=== PATIENT | male | born 1995 | race Caucasian/White ===

== ENCOUNTER 2019-06-02 12:27 | Inpatient (IN) | payer OTHER, SELFPAY ==
[2019-06-02] VITALS (14 sets, daily range): BP systolic 98–137; BP diastolic 64–94; PULSE 72–106; RESP 13–23; TEMP 36.6–36.9; O2SAT 93–99; BMI 19.1
--- NOTE | ~2019-06-02 | XR_ITS ---
EXAMINATION: XR chest 1V portable EXAM DATE: 06/06/2019 15:01 INDICATION: Left-sided pneumothorax. TECHNIQUE: Portable AP frontal chest x-ray was obtained. Comparison is made to prior examination from 06/05/2019. FINDINGS: There is small apical lateral pneumothorax. The pleural reflection has been indicated on st udy for your review. Left-sided chest tube has slightly retracted but is still overlying left hemitho rax. No focal airspace disease. Lungs are hyperinflated with narrow cardiac silhouette. IMPRESSION: Small left pneumothorax unchanged. Reviewed, dictated and finalized at location A. A REPORTER
--- NOTE | ~2019-06-02 | XR_ITS ---
EXAMINATION: XR chest 1V portable DATE: 06/05/2019 07:40 INDICATION: Left pneumothorax. TECHNIQUE: A single frontal view of the chest was obtained on 2 radiographs. COMPARISON: Chest 2 views 06/04/2019 FINDINGS: There is a small left apical pneumothorax. There is a left-sided chest tube in expected pos ition. No pneumonia or pleural effusion. The heart size is normal. IMPRESSION: 1. Small left pneumothorax with interval improvement with chest tube in expected position. Reviewed, dictated and finalized at location B. TALLOGRAPHY TEACHER IMPRESSION: 1. Small left pneumothorax with interval improvement with chest tube in expecte d position.
--- NOTE | ~2019-06-02 | XR_ITS ---
EXAMINATION: XR chest 1V portable EXAM DATE: 06/07/2019 14:41 INDICATION: Pneumothorax. Left-sided chest tube placement. TECHNIQUE: Portable AP frontal chest x-ray was obtained. Comparison is made to prior examination from 06/07/2019. FINDINGS: The left-sided chest tube has been reinserted with tiny apical pneumothorax identified, nolvia rly completely reexpanded left lung. No focal airspace disease. Lungs are hyperinflated. There are no osseous abnormalities identified. There is subcutaneous gas. IMPRESSION: 1. Nearly complete reexpansion of the left lung following chest tube insertion. 2. Tiny apical pneumothorax. Reviewed, dictated and finalized at location A. SORTER OPERATOR IMPRESSION: 1. Nearly complete reexpansion of the left lung following chest tube insertion . 2. Tiny apical pneumothorax.
--- NOTE | ~2019-06-02 | XR_ITS ---
EXAMINATION: XR chest 1V portable DATE: 06/03/2019 05:43 INDICATION: Left pneumothorax. TECHNIQUE: A single frontal view of the chest was obtained on 2 radiographs. COMPARISON: Chest single view 06/02/2019 FINDINGS: The chest demonstrates clear lungs without pneumonia, pleural effusion, or pneumothorax. Th e heart size is normal. A left-sided chest tube is noted in expected position. IMPRESSION: 1. No pneumothorax. Left-sided chest tube in expected position. Reviewed, dictated and finalized at location A. UCT STEWARD
--- NOTE | ~2019-06-02 | XR_ITS ---
EXAMINATION: XR chest 2V DATE: 06/08/2019 10:55 INDICATION: Left pneumothorax. TECHNIQUE: Frontal and lateral views of the chest were obtained. COMPARISON: Chest single view 06/07/2019 FINDINGS: There is a moderate-sized left pneumothorax. There is a left-sided chest tube anteriorly wi th slight change in positioning. No pleural effusion or pneumonia. The heart size is normal. There is soft tissue gas in left chest wall and left neck. IMPRESSION: 1. Moderate-sized left pneumothorax with left chest tube in expected position. Reviewed, dictated and finalized at location A. REFINER
--- NOTE | ~2019-06-02 | XR_ITS ---
EXAMINATION: XR chest 1V portable EXAM DATE: 06/02/2019 14:18 INDICATION: Chest tube placement. Pneumothorax. TECHNIQUE: Frontal projections of the chest obtained and reviewed. Comparison is made to prior examin ation from 06/02/2019. FINDINGS: There is a left-sided chest tube, tip and side-port projecting over the left hemithorax. T here is small left-sided pneumothorax, pleural reflections have been indicated at the apex. Pneumotho rax has decreased significantly in size compared to this examination. Lungs appear significantly hype rinflated. Cardiomediastinal silhouette is normal. There are no pleural effusions. There are no osseo us abnormalities identified. IMPRESSION: 1. Left chest tube overlying expected position. 2. Small left pneumothorax. Reviewed, dictated and finalized at location A. NT SUPPORT ASSOCIATE
--- NOTE | ~2019-06-02 | XR_ITS ---
EXAMINATION: XR chest 1V portable DATE: 06/03/2019 09:09 INDICATION: Left pneumothorax. TECHNIQUE: A single frontal view of the chest was obtained. COMPARISON: Chest single view at 5:06 AM. FINDINGS: There is a moderate-sized left pneumothorax. There is a left-sided chest tube in expected p osition. No pleural effusion. The heart size is normal. IMPRESSION: 1. Worsened moderate-sized left pneumothorax with chest tube in expected position. Reviewed, dictated and finalized at location A. TILE MAKER IMPRESSION: 1. Worsened moderate-sized left pneumothorax with chest tube in expected positi on.
--- NOTE | ~2019-06-02 | XR_ITS ---
EXAMINATION: XR chest 2V DATE: 06/07/2019 08:37 INDICATION: Left pneumothorax. TECHNIQUE: Frontal and lateral views of the chest were obtained on 3 radiographs. COMPARISON: Chest single view 06/06/2019 FINDINGS: The chest demonstrates clear lungs without pneumonia, pleural effusion, or pneumothorax. Th e heart size is normal. There is a left-sided chest tube in expected position. IMPRESSION: 1. No pneumothorax. Left-sided chest tube in expected position. Reviewed, dictated and finalized at location A. N GRADER
--- NOTE | ~2019-06-02 | XR_ITS ---
XR chest 2V 06/04/2019 11:33 Indication: Left pneumothorax Procedure: 2 views of the chest Comparison: Comparison to multiple prior studies sequentially, with oldest reviewed study dated 05/05. Findings: Moderate left pneumothorax, slightly improved compared with most recent x-ray dated 020 at 9:06 AM. Left-sided chest tube in the mid thorax. No edema, effusion. Heart size normal. Impression: 1: Slightly decreased size of left pneumothorax from most recent study. Interval reposition of left c hest tube, now overlying the mid thorax. Reviewed, dictated and finalized at location A. CLE MECHANIC Impression: 1: Slightly decreased size of left pneumothorax from most recent study. Interva l reposition of left chest tube, now overlying the mid thorax.
--- NOTE | ~2019-06-02 | XR_ITS ---
EXAMINATION: XR chest 2V DATE: 06/02/2019 12:47 INDICATION: Chest pain. Shortness of breath. TECHNIQUE: Frontal and lateral views of the chest were obtained on 4 radiographs. COMPARISON: Chest 2 views 05/26/2014 FINDINGS: There is a large left pneumothorax. No pneumonia or pleural effusion. The heart size is nor mal. IMPRESSION: 1. Large left pneumothorax. I called this result to Dr. Lobato on 06/02/19 at 13:21. Reviewed, dictated and finalized at location A. Y TELEGRAPHER IMPRESSION: 1. Large left pneumothorax. I called this result to Dr. Lobato on 06/02/19 a t 13:21.
--- NOTE | ~2019-06-02 | XR_ITS ---
EXAMINATION: XR chest 1V portable DATE: 06/07/2019 13:02 INDICATION: Left pneumothorax. TECHNIQUE: A single frontal view of the chest was obtained on 2 radiographs. COMPARISON: Chest 2 views 06/07/2019 at 8:34 AM FINDINGS: There is a large left pneumothorax. No pleural effusion. The heart size is normal. There is gas in left neck and left chest wall. IMPRESSION: 1. Large left pneumothorax. Reviewed, dictated and finalized at location A. UNITY CULTURAL DEVELOPMENT OFFICER IMPRESSION: 1. Large left pneumothorax.
--- NOTE | 2019-06-02 12:31 | ECG_ITS ---
Measurements Intervals [place] Rate: 74 P: 75 NE: 160 QRS: 92 QRSD: 102 T: 63 QT: 342 QTc: 380 Interpretive Statements SINUS RHYTHM WITH SINUS ARRHYTHMIA POSSIBLE RIGHT ATRIAL ENLARGEMENT POSSIBLE LEFT ATRIAL ENLARGEMENT RIGHT AXIS DEVIATION INCOMPLETE RIGHT BUNDLE BRANCH BLOCK BASELINE ARTIFACT- I, II, AVR, AVL, AVF, V1-V6 BORDERLINE ECG Electronically Signed On 06-02-2019 13:58:02 WAITER/WAITRESS TAVERN by Stan Yen D.O.
[2019-06-02 12:50] LABS: Basophils Percent Auto 0.5 % (0.2-1.2); Eosinophils Absolute Auto 0.2 K/mm3 (0-0.3); Eosinophils Percent Auto 3.4 % (0-4.4); Hemoglobin 15.5 g/dL (14.0-18.0); Immature Granulocyte Absolute 0.02 K/mm3 (0.00-0.031); Immature Granulocyte Percent A 0.3 % (0-0.5); Lymphocytes Absolute Auto 2.02 K/mm3 (0.9-3.2); Lymphocytes Percent Auto 34.1 % (18.3-44.2); Mean Corpuscular Hemoglobin 30.5 pg (26-34); Mean Corpuscular Volume 92.5 fl (80-100); Mean Platelet Volume 9.1 fl (7.4-10.4); Monocytes Absolute Auto 0.5 K/mm3 (0.1-0.6); Monocytes Percent Auto 7.6 % (2.6-8.5); Neutrophils Absolute Auto 3.2 K/mm3 (1.3-6.7); Neutrophils Percent Auto 54.1 % (45.5-73.1); Platelet Count Result 250 k/mm3 (150-375); Red Blood Count 5.08 M/mm3 (4.6-6.20); Red Cell Distribution Width 12.5 % (11.5-14.5); White Blood Count 5.9 K/mm3 (4.5-10.0)
[2019-06-02 12:59] LABS: Prothrombin Time 13.3 Seconds (11.1-14.7)
--- NOTE | 2019-06-02 13:02 | ED.CHESTPAIN ---
HPI - Chest Pain General Chief Complaint: Chest Pain Stated Complaint: anxiety/cp Time Seen by Provider: 06/02/19 13:00 Source: patient Mode of arrival: EMS Limitations: no limitations History of Present Illness HPI narrative: Pt is a 24 y/o male who presents to the ED, via EMS, with c/o 7-8/10 lt-sided chest tightness that started this morning. He reports SOB. Pt has a h/o anxiety. He states that he has never had this pain before. Pt was given ASA en route. MD complaint: chest pain Timing of current episode: constant Prior episodes: No Onset: awoke with symptoms Pain location: left chest Quality: tightness Associated symptoms: dyspnea and other (anxiety) Treatment prior to arrival: aspirin Related Data Home Medications Medication Instructions Recorded Confirmed clonazepam 06/02/19 Allergies Allergy/AdvReac Type Severity Reaction Status Date / Time No Known Allergies Allergy Unverified 06/02/19 12:57 Review of Systems Review of Systems: All systems reviewed & are unremarkable except as noted in HPI and below Cardiovascular: Cardiovascular: Reports chest pain (lt sided) Respiratory: Respiratory: Reports dyspnea Psychiatric: Psychiatric: Reports anxiety PMFSH Past Medical History Medical History (Updated 06/02/19 @ 18:27 by Graham Lobato MD) Anxiety Asthma Bronchitis Depression Surgical History Surgical History (Updated 06/02/19 @ 13:20 by Greg May) No significant past surgical history Social History Social History (Updated 06/02/19 @ 13:20 by Greg May) Smoking status: Current every day smoker Gender identity (if verbalized by the patient): Male Exam Const: General: healthy appearing Nutritional Appearance: well nourished HENMT: Mouth: Yes lip normal and Yes moist mucous membranes Eyes: Conjunctivae: conjunctivae normal Pupils: PERRL Resp: Auscultation: breath sounds absent on th left Cardio: Rate: tachycardic Rhythm: regular rhythm GI: GI Palp: Yes soft and No tender Auscultation: normal bowel sounds Back/Spine/Pelvis: Back: other (full ROM) Skin: General skin exam: normal color, dry skin and other (warm) Neuro: General: oriented x3 (alert) Speech: normal speech Extrem: General: full ROM Psych: Mental Status: mental status grossly normal Affect: anxious affect Course Vital Signs Vital signs: Vital Signs Temperature 36.6 C 06/02/19 12:29 Pulse Rate 92 06/02/19 12:29 Respiratory Rate 18 06/02/19 12:29 Blood Pressure 102/73 06/02/19 12:29 Pulse Oximetry 99 06/02/19 12:29 Temperature 36.6 C 06/02/19 12:29 Pulse Rate 85 06/02/19 17:16 Respiratory Rate 21 H 06/02/19 17:16 Blood Pressure 119/76 06/02/19 17:16 Pulse Oximetry 98 06/02/19 15:10 Procedures Chest Tube Chest Tube 1: Chest Tube Date: 06/02/19 Chest Tube Time: 14:11 Chest Tube Location: left, mid axillary line and fifth interspace Tube Type: quik thal Size of Tube (cm): 16 Chest Tube Prep: Yes betadine prep (chlorhexadine) and sterile drapes applied Anesthetic: lidocaine 1% Incision Made With: #10 blade Post Procedure: sutured to skin, sterile dressing applied and connected to Pluero Vac Tube Drainage: none Post Procedure CXR?: Yes Post Procedure: post CXR reviewed, placement appropriate and pneumo resolved Patient Tolerated Procedure: Yes MDM - Chest Pain Lab Data Result diagrams: 06/02/19 12:37 06/02/19 12:37 Labs: Lab Results 06/02/19 06/02/19 06/02/19 Range/Units 12:37 12:37 12:37 WBC 5.9 (4.5-10.0) K/mm3 RBC 5.08 (4.6-6.20) M/mm3 Hgb 15.5 (14.0-18.0) g/dL Hct 47.0 (42.0-52.0) % MCV 92.5 (80-100) fl MCH 30.5 (26-34) pg MCHC 33.0 (32-36) g/dl RDW 12.5 (11.5-14.5) % Plt Count 250 (150-375) k/mm3 MPV 9.1 (7.4-10.4) fl Immature Gran % (Auto) 0.3 (0-0.5) % N
[2019-06-02 13:05] LABS: Blood Urea Nitrogen 10 mg/dL (9-20); Calcium 9.7 mg/dL (8.4-10.2); Carbon Dioxide 26 mmol/L (22-30); Chloride 101 mmol/L (98-107); Estimated Glomerular Filt Rate > 60; Glucose 100 mg/dL (75-110); Potassium 4.1 mmol/L (3.4-5.0); Sodium 137 mmol/L (137-145)
[2019-06-02] MEDS: LORAZEPAM INJ 2 MG/ML VIAL IV PUSH (13:12)
[2019-06-02 13:16] LABS: Troponin I < 0.012 ng/mL (0.000-0.034)
--- NOTE | 2019-06-02 15:21 | PC.NURSE ---
Pts mother in room, getting pt very upset. This RN asked her to leave and mother started yelling at this RN causing a scene, demanding to talk to the dr. I again told her she needed to leave because pt was getting very upset and attempted to pull out his chest tube to leave. Mother walked out of room and this RN able to calm pt and get him back in bed.
[2019-06-02] MEDS: KETOROLAC 30 MG/ML VIAL (*BKC) IV PUSH (18:29)
[2019-06-02] MEDS: MORPHINE SULFATE 2 MG/ML INJ IV PUSH (18:30)
--- NOTE | 2019-06-02 20:03 | ADMGEN ---
This patient, Favian Burris, was admitted to 2 Medical Room 257-. Patient/family oriented to hospital policies and general routines including ID bracelet, bed and alarms, visiting hours, pain management, procedures, bathroom and other care routines, personal items, smoking policy, room service/diet, and visiting hours. Valuables list has been completed. Information on how to activate the Rapid Response Team has been discussed. Patient/Family are encouraged to report perceived risks to care and to ask questions if they do not understand what they are told or what they should do.
[2019-06-02 20:39] LABS: Troponin I < 0.012 ng/mL (0.000-0.034)
--- NOTE | 2019-06-02 23:01 | PM.IMHP ---
H&P: HPI History of Present Illness Chief complaint: pneumothorax Narrative: Favian Burris is a 24 year old male With states that he simply woke up this morning short of breath. When I did get better E came to the emergency room for a workup. Chest x-ray showed a pneumothorax on the left. Chest tube was placed in the ER and the postop chest x-ray reveals almost complete resolution of the pneumothorax. Most likely the patient has appy Koul blebs on the left. Patient is a smoker and we did discuss possible cessation. Review of Systems Constitutional: Constitutional: Reports no additional constitutional complaints and Denies frequent falls Eyes: Eyes: Reports as per HPI ENT: Reports hearing normal, Denies dizziness and Reports other (Mucous membranes moist.) Cardiovascular: Cardiovascular: Denies chest pain, Denies palpitations, Denies dyspnea and Denies dyspnea on exertion Respiratory: Respiratory: Denies hemoptysis, Reports pain with cough, Denies dyspnea, Denies dyspnea on exertion and Denies wheezing Comments: Patient admits to smoking both cigarettes and marijuana. States he actually probably slid smokes little bit more marijuana than cigarettes. His brother was in the room states he thinks the patient actually smokes more cigarettes than the other. Patient has never had a previous pneumothorax. Gastrointestinal: Gastrointestinal: Reports no additional gastrointestinal complaints Genitourinary: Genitourinary: Denies hematuria, Denies nocturia and Denies urinary frequency Musculoskeletal: Musculoskeletal: Denies deformity and Reports other ( no clubbing,cyanosis, or edema) Integumentary/Breasts: Skin/Breast: Denies new lesions, Denies rash and Denies unusual bruising Neurologic: Reports Normal hearing present, Denies dizziness, Denies frequent falls, Denies memory loss and Denies seizure-like activity Psychiatric: Psychiatric: Reports depression ( History of anxiety /depression. Occasionally takes clonazepam typically ), Denies memory loss and Reports other ( normal mood and mental status) Comments: Typically takes his clonazepam 1 or 2 times a week not every day. Endocrine: Endocrine: Denies cold intolerance and Denies palpitations Hematologic/Lymphatic: Hematologic/Lymphatic: Denies easy bleeding and Denies easy bruising Allergic/Immunologic: Allergic/Immunologic: Denies wheezing and Reports other ( no lymphadenopathy) [facility] Past Medical History Medical History (Updated 06/02/19 @ 23:10 by Mj Dodd MD) Anxiety Asthma Bronchitis Depression Surgical History Surgical History (Updated 06/02/19 @ 13:20 by Greg May) No significant past surgical history Family History Family History (Updated 06/02/19 @ 20:27 by Nick Iglesias RN) Mother Panic attack Anxiety Mitral valve prolapse Social History Social History (Updated 06/02/19 @ 13:20 by Greg May) Smoking packs per day: 1.5 Smoking cigarettes per day: 30.0 Years smoked: 12 Smoking pack-years: 18.00 Smoking status: Current every day smoker Tobacco type: cigarettes Second hand tobacco smoke exposure: Yes Alcohol intake: current Drinks per week: 1 Substance use: current Substance use type: marijuana Last use: 06/02/2019 Gender identity (if verbalized by the patient): Male Spiritual care concerns: No Agree to blood products: Yes Meds Home Medications and Allergies Home Medications Medication Instructions Recorded Confirmed Type clonazepam 0.5 mg PO DAILY PRN 06/02/19 06/02/19 History Allergies Allergy/AdvReac Type Severity Reaction Status Date / Time No Known Allergies Allergy Unverified 06/02/19 12:57 Vital Signs Vital Signs - 24 hr 06/02/19 12:29 06/02/19 12:53 06/02/19 13:30 Temperature 36.6 C Pulse Rate 92 75 100 Respiratory Rate 18 23 H 20 Blood Pressure 102/73 124/91 H 115/64 Pulse Oximetry 99 97 98 06/02/19 14:01 06/02/19 14:26 06/02/19
[2019-06-02] MEDS: SODIUM CHLORIDE 0.9% IV 1,000 ML 50 ML IV CONT (23:26)
[2019-06-03] MEDS: CLONAZEPAM 0.5 MG TAB PO ×2 (00:52→12:46)
[2019-06-03] MEDS: MORPHINE SULFATE 2 MG/ML INJ IV PUSH (03:45)
[2019-06-03 06:00] VITALS: BP 121/78; PULSE 92; RESP 18; TEMP 36.7; O2SAT 96
--- NOTE | 2019-06-03 07:22 | PC.NURSE ---
Chest tube suction turned off per doctors order at 6 am
--- NOTE | 2019-06-03 09:40 | PC.NURSE ---
Chest tube hooked back up to suction per Dr. Dodd.
[2019-06-03 14:00] VITALS: BP 135/97; PULSE 88; RESP 19; TEMP 36.8; O2SAT 100
--- NOTE | 2019-06-03 19:01 | PM.PNGS ---
Progress Note: A&P Assessment and Plan (1) Pneumothorax: Onset Date: 06/02/19 Qualifiers: Pneumothorax type: spontaneous, primary Qualified Code(s): J93.11 - Primary spontaneous pneumothorax Code(s): J93.9 - Pneumothorax, unspecified Status: Acute Assessment and Plan: Chest x-ray done with chest tube office suction revealed collapse of the lung where as earlier chest x-ray today showed lung completely re-expanded well chest tube was to Pleur-Evac and suction. Plan will be to again place the chest tube to water seal only at 7:00 a.m. tomorrow morning repeat chest x-ray at 9:00 a.m.. Patient had a persistent air leak today so will be left to 20 cm water seal suction for another 24 hours. (2) Anxiety: Onset Date: Unknown Code(s): F41.9 - Anxiety disorder, unspecified Status: Acute Assessment and Plan: Patient has p.r.n. clonazepam ordered. Does not indicate significant anxiety. Subjective Subjective Date/Time Seen: 06/03/19 18:01 patient stating that he still has pain along the left chest with a chest tube is. Has not noticed specific shortness of breath. Actually did not notice severe shortness of breath when his lung partially collapsed while the chest tube was on off of suction this morning. Review of Systems Constitutional: Constitutional: Reports no additional constitutional complaints ENT: Reports other (Mucous Membranes moist.) Cardiovascular: Cardiovascular: Denies dyspnea Respiratory: Respiratory: Denies pain on inspiration and Denies dyspnea Musculoskeletal: Musculoskeletal: Reports other (No calf swelling or edema) Integumentary/Breasts: Skin/Breast: Reports system reviewed and no additional complaints, except as docu Exam Const: General: cooperative, no acute distress, alert and awake Orientation/consciousness: oriented x3 HENMT: Mouth: Yes moist mucous membranes Neck: Neck: normal visual inspection Chest: Chest palpation & inspection: normal inspection of the chest Resp: Effort & Inspection: normal respiratory effort Auscultation: clear to auscultation bilaterally Other: Left chest to in place Inspection of the Pleur-Evac canister reveals that with talking and coughing there is a pair present air leak. After several coughs and then using the incentive spirometer the air leak stopped. Cardio: Jugular venous distension: no JVD Rate: regular rate Rhythm: regular rhythm Neuro: General: oriented x3 and moves all extremities Speech: normal speech Extrem: General: normal exam except as noted Psych: Mental Status: mental status grossly normal Speech and movement: speech and movement normal Affect: normal affect Thought content: Yes normal Objective Data Vital Signs Vital Signs: Vital Signs - 24 hr 06/02/19 19:40 06/02/19 20:21 06/03/19 06:00 Temperature 36.9 C 36.7 C Pulse Rate 75 106 H 92 Respiratory Rate 16 16 18 Blood Pressure 118/72 114/76 121/78 Pulse Oximetry 99 97 96 06/03/19 14:00 Temperature 36.8 C Pulse Rate 88 Respiratory Rate 19 Blood Pressure 135/97 H Pulse Oximetry 100 Intake/Output Intake/Output: Intake & Output 05/31/19 06/01/19 06/02/19 06/03/19 23:59 23:59 23:59 23:59 Intake Total 1190 Output Total 1500 Balance -310 Meds/Results Medications: Active Medications Generic Name Dose Route Start Last Admin Trade Name Freq PRN Reason Stop Dose Admin Hydrocodone Bitart/Acetaminophen 1 tab 06/02/19 19:18 06/03/19 12:46 [place] 5-325 Mg PO 1 tab Q6H PRN Administration Pain Rated 4-6 Clonazepam 0.5 mg 06/02/19 22:57 06/03/19 12:46 Klonopin Tablet PO 0.5 mg Q12H PRN Administration Anxiety Sodium Chloride 1,000 mls @ 50 mls/hr 06/02/19 19:20 06/02/19 23:26 Normal Saline Iv IV CONT 50 mls/hr .Q20H KASSIE Administration Morphine Sulfate 2 mg 06/02/19 19:19 06/03/19 03:45 Morphine Sulfate Inj IV PUSH 2 mg Q4H PRN Adminis
[2019-06-03] MEDS: SODIUM CHLORIDE 0.9% IV 1,000 ML 50 ML IV CONT (20:09)
[2019-06-03 22:00] VITALS: BP 103/67; PULSE 72; RESP 16; TEMP 36.8; O2SAT 100
[2019-06-04] MEDS: CLONAZEPAM 0.5 MG TAB PO ×2 (00:28→15:05)
[2019-06-04 06:00] VITALS: BP 102/68; PULSE 56; RESP 16; TEMP 36.7; O2SAT 98
--- NOTE | 2019-06-04 07:00 | PC.NURSE ---
Suction held to chest tube. Pt is having no shortness of breath at this time.
--- NOTE | 2019-06-04 07:44 | PC.NURSE ---
Dr. Dodd hooked patient's chest tube back up to suction. He wants to cancel the CXR for now and reevaluate later today. He says the patient can be unhooked if he wants to take a walk in the halls and then return to suction once completed. 06/04/19 at 0740
--- NOTE | 2019-06-04 10:28 | PC.NURSE ---
Spoke with Dr. Dodd this morning about patients chest tube bubbling. Chelsey Perez RN and Dr. Dodd looked for any air leaks in the tubing and he put extra tape to reenforce it. Around 0910 this morning I went in to do my assessment and the patient was laying on his right side and the chest tube was bubbling frequently. I went out and Iris Franco was at the desk. She came to asses the patient. She stated the tube could be positional and she adjusted the suction on the wall to better help the chest tube set up. She also repositioned the patient. The bubbling is frequent when he lays on the right, moderate when he is sitting up and minimal when laying in bed. She rechecked for leaks in the tubing.
--- NOTE | 2019-06-04 11:27 | PM.PNGS ---
Progress Note: A&P Assessment and Plan (1) Pneumothorax: Onset Date: 06/02/19 Qualifiers: Pneumothorax type: spontaneous, primary Qualified Code(s): J93.11 - Primary spontaneous pneumothorax Code(s): J93.9 - Pneumothorax, unspecified Status: Acute Assessment and Plan: Persistent air leak noted today on exam. Tubing connections secure. Will get chest x-ray this morning while on wall suction. This will allow us to re-evaluate and confirm placement again today due to the air leak and also evaluate for a pneumothorax while on suction. (2) Anxiety: Onset Date: Unknown Code(s): F41.9 - Anxiety disorder, unspecified Status: Acute Assessment and Plan: Patient has p.r.n. clonazepam ordered. Does not indicate significant anxiety. Subjective Subjective Date/Time Seen: 06/04/19 10:20 Patient reports: no new complaints and still having pain Interval history: Patient seen and examined. Reports still having pain but all localized where the chest tube was inserted. No shortness of breath. Has refused to get up and walk today. No other complaints. Air leak noted yesterday. Review of Systems Review of Systems: All systems reviewed & are unremarkable except as noted in HPI and below Exam Const: General: no acute distress, alert and awake Orientation/consciousness: oriented x3 Chest: Chest palpation & inspection: normal inspection of the chest Resp: Effort & Inspection: normal respiratory effort, able to speak in complete sentences and no respiratory distress Auscultation: clear to auscultation bilaterally Other: Left lateral chest tube in place. Persistent air leak noted on wall suction. No crepitus. Tubings checked and secure. Cardio: Rate: regular rate Rhythm: regular rhythm Skin: General skin exam: normal color Neuro: General: moves all extremities Extrem: General: no edema Psych: Attitude: cooperative Thought process: normal thought process Objective Data Vital Signs Vital Signs: Vital Signs - 24 hr 06/03/19 14:00 06/03/19 22:00 06/04/19 06:00 Temperature 36.8 C 36.8 C 36.7 C Pulse Rate 88 72 56 L Respiratory Rate 19 16 16 Blood Pressure 135/97 H 103/67 102/68 Pulse Oximetry 100 100 98 Intake/Output Intake/Output: Intake & Output 06/01/19 06/02/19 06/03/19 06/04/19 23:59 23:59 23:59 23:59 Intake Total 2430 180 Output Total 1500 225 Balance 930 -45 Meds/Results Medications: Active Medications Generic Name Dose Route Start Last Admin Trade Name Freq PRN Reason Stop Dose Admin Hydrocodone Bitart/Acetaminophen 1 tab 06/02/19 19:18 06/04/19 09:27 [place] 5-325 Mg PO 1 tab Q6H PRN Administration Pain Rated 4-6 Clonazepam 0.5 mg 06/02/19 22:57 06/04/19 00:28 Klonopin Tablet PO 0.5 mg Q12H PRN Administration Anxiety Sodium Chloride 1,000 mls @ 50 mls/hr 06/02/19 19:20 06/03/19 20:09 Normal Saline Iv IV CONT 50 mls/hr .Q20H KASSIE Administration Morphine Sulfate 2 mg 06/02/19 19:19 06/03/19 03:45 Morphine Sulfate Inj IV PUSH 2 mg Q4H PRN Administration Pain Rated 4-6 Morphine Sulfate 4 mg 06/02/19 19:18 Morphine Sulfate Inj IV PUSH Q4H PRN Pain Rated 7-10 Nicotine 1 patch 06/02/19 23:00 06/04/19 09:29 Nicoderm Cq 21 Mg TRANSDERM 1 patch QAM KASSIE Administration Radiology Results: ITS Impressions Chest X-Ray 06/03/19 09:14 IMPRESSION: 1. Worsened moderate-sized left pneumothorax with chest tube in expected position.
[2019-06-04 14:00] VITALS: BP 112/65; PULSE 78; RESP 15; TEMP 37.1; O2SAT 99
[2019-06-04 21:38] VITALS: BP 134/84; PULSE 74; RESP 16; TEMP 36.4; O2SAT 99
[2019-06-04] MEDS: SODIUM CHLORIDE 0.9% IV 1,000 ML 50 ML IV CONT (22:59)
[2019-06-05 06:00] VITALS: BP 128/81; PULSE 72; RESP 16; TEMP 36.4; O2SAT 98
[2019-06-05] MEDS: CLONAZEPAM 0.5 MG TAB PO ×2 (07:44→20:02)
--- NOTE | 2019-06-05 08:06 | PM.PNGS ---
Progress Note: A&P Assessment and Plan (1) Pneumothorax: Onset Date: 06/02/19 Qualifiers: Pneumothorax type: spontaneous, primary Qualified Code(s): J93.11 - Primary spontaneous pneumothorax Code(s): J93.9 - Pneumothorax, unspecified Status: Acute Assessment and Plan: Persistent air leak noted today on exam. Tubing connections secure. chest x-ray this morning while on wall suction appears to show only a g of small apical pneumothorax on the left. Will plan for another full day on suction and consider trying clamping the chest tube if no air-leak tomorrow morning. (2) Anxiety: Onset Date: Unknown Code(s): F41.9 - Anxiety disorder, unspecified Status: Acute Assessment and Plan: Patient has p.r.n. clonazepam ordered. Does not indicate significant anxiety. Subjective Subjective Date/Time Seen: 06/05/19 08:06 Patient is sleeping when I enter the room. Denies shortness of breath or significant chest pain. Nurse reports that the Pleur-Evac was still bubbling over. 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 Patient reports: feels better Review of Systems Constitutional: Constitutional: Reports no additional constitutional complaints ENT: Reports other (Mucous Membranes moist.) Cardiovascular: Cardiovascular: Denies dyspnea Respiratory: Respiratory: Denies pain on inspiration and Denies dyspnea Musculoskeletal: Musculoskeletal: Reports other (No calf swelling or edema) Integumentary/Breasts: Skin/Breast: Reports system reviewed and no additional complaints, except as docu Exam Const: General: cooperative, no acute distress, alert and awake Orientation/consciousness: oriented x3 HENMT: Mouth: Yes moist mucous membranes Neck: Neck: normal visual inspection Chest: Chest palpation & inspection: normal inspection of the chest Resp: Effort & Inspection: normal respiratory effort Auscultation: clear to auscultation bilaterally, no crackles, no rales and no wheezes Other: Chest tube site seems to be well tape. Inspection of the Pleur-Evac with it on suction reveals other still an air leak. This does seem to stop once the patient is in the upright position. Cardio: Jugular venous distension: no JVD Rate: regular rate Rhythm: regular rhythm Neuro: General: oriented x3 and moves all extremities Speech: normal speech Extrem: General: normal exam except as noted Psych: Mental Status: mental status grossly normal Speech and movement: speech and movement normal Affect: normal affect Thought content: Yes normal Objective Data Vital Signs Vital Signs: Vital Signs - 24 hr 06/04/19 14:00 06/04/19 21:38 06/05/19 06:00 Temperature 37.1 C 36.4 C 36.4 C L Pulse Rate 78 74 72 Respiratory Rate 15 16 16 Blood Pressure 112/65 134/84 128/81 Pulse Oximetry 99 99 98 Intake/Output Intake/Output: Intake & Output 06/02/19 06/03/19 06/04/19 06/05/19 23:59 23:59 23:59 23:59 Intake Total 2430 2466 550 Output Total 1500 875 750 Balance 930 1591 -200 Meds/Results Medications: Active Medications Generic Name Dose Route Start Last Admin Trade Name Freq PRN Reason Stop Dose Admin Hydrocodone Bitart/Acetaminophen 1 tab 06/02/19 19:18 06/04/19 23:02 [place] 5-325 Mg PO 1 tab Q6H PRN Administration Pain Rated 4-6 Clonazepam 0.5 mg 06/02/19 22:57 06/05/19 07:44 Klonopin Tablet PO 0.5 mg Q12H PRN Administration Anxiety Sodium Chloride 1,000 mls @ 50 mls/hr 06/02/19 19:20 06/04/19 22:59 Normal Saline Iv IV CONT 50 mls/hr .Q20H KASSIE Administration Morphine Sulfate 2 mg 06/02/19 19:19 06/03/19 03:45 Morphine Sulfate Inj IV PUSH 2 mg Q4H PRN Administration Pain Rated 4-6 Morphine Sulfate 4 mg 06/02/19 19:18 Morphine Sulfate Inj IV PUSH Q4H PRN Pain Rated 7-10 Nicotine 1 patch 06/02/19 23:00 06/04/19 09:29 Nicoderm Cq 21
[2019-06-05 14:00] VITALS: BP 106/59; PULSE 62; RESP 16; TEMP 36.4; O2SAT 96
[2019-06-05] MEDS: SODIUM CHLORIDE 0.9% IV 1,000 ML 50 ML IV CONT (19:12)
[2019-06-05 22:00] VITALS: BP 112/56; PULSE 84; RESP 21; TEMP 37; O2SAT 100
[2019-06-06 06:00] VITALS: BP 103/63; PULSE 62; RESP 21; TEMP 36.3; O2SAT 100
[2019-06-06 14:00] VITALS: BP 99/67; PULSE 86; RESP 18; TEMP 36.7; O2SAT 99
--- NOTE | 2019-06-06 14:28 | PM.PNGS ---
Progress Note: A&P Assessment and Plan (1) Pneumothorax: Onset Date: 06/02/19 Qualifiers: Pneumothorax type: spontaneous, primary Qualified Code(s): J93.11 - Primary spontaneous pneumothorax Code(s): J93.9 - Pneumothorax, unspecified Status: Acute Assessment and Plan: Water was noted in the suction regulator on the Pleur-Evac, therefore Pleur-Evac chamber was changed to a new 1. Patient still has a small air leak while on suction, but no air leak noted when patient was on water seal. Will get a repeat chest x-ray today, and plan for two-view chest x-ray in morning with Pleur-Evac to water-seal. Chest tube may be removed tomorrow if no air leak noted on water seal. Subjective Subjective Date/Time Seen: 06/06/19 14:28 Patient is still noted to have a small air leak well chest tube is on suction. He denies chest pain or shortness of breath. He is ambulating without difficulty. Has not had a bowel movement in 4 days. Exam Resp: Effort & Inspection: normal respiratory effort Auscultation: clear to auscultation bilaterally, no crackles and no wheezes Other: Left chest tube in place. Water noted within the suction regulator. Pleur-Evac changed. Objective Data Vital Signs Vital Signs: Vital Signs - 24 hr 06/05/19 22:00 06/06/19 06:00 Temperature 37.0 C 36.3 C L Pulse Rate 84 62 Respiratory Rate 21 H 21 H Blood Pressure 112/56 L 103/63 Pulse Oximetry 100 100 Intake/Output Intake/Output: Intake & Output 06/03/19 06/04/19 06/05/19 06/06/19 23:59 23:59 23:59 23:59 Intake Total 2430 2466 2960 540 Output Total 2859 857 1651 700 Balance 930 1591 1635 -160 Meds/Results Medications: Active Medications Generic Name Dose Route Start Last Admin Trade Name Freq PRN Reason Stop Dose Admin Hydrocodone Bitart/Acetaminophen 1 tab 06/02/19 19:18 06/06/19 02:11 [place] 5-325 Mg PO 1 tab Q6H PRN Administration Pain Rated 4-6 Clonazepam 0.5 mg 06/02/19 22:57 06/05/19 20:02 Klonopin Tablet PO 0.5 mg Q12H PRN Administration Anxiety Magnesium Hydroxide 30 ml 06/06/19 14:28 Milk Of Magnesia PO 06/06/19 14:29 ONCE ONE Magnesium Hydroxide 30 ml 06/07/19 09:00 Milk Of Magnesia PO QAM KASSIE Morphine Sulfate 2 mg 06/02/19 19:19 06/03/19 03:45 Morphine Sulfate Inj IV PUSH 2 mg Q4H PRN Administration Pain Rated 4-6 Morphine Sulfate 4 mg 06/02/19 19:18 Morphine Sulfate Inj IV PUSH Q4H PRN Pain Rated 7-10 Nicotine 1 patch 06/02/19 23:00 06/06/19 09:54 Nicoderm Cq 21 Mg TRANSDERM 1 patch QAM KASSIE Administration Radiology Results: ITS Impressions Chest X-Ray 06/05/19 08:08 IMPRESSION: 1. Small left pneumothorax with interval improvement with chest tube in expected position.
[2019-06-06] MEDS: CLONAZEPAM 0.5 MG TAB PO (15:56)
[2019-06-06 20:18] VITALS: PULSE 86; RESP 18; O2SAT 99
[2019-06-06 22:00] VITALS: PULSE 82; RESP 21; TEMP 36.6; O2SAT 100
[2019-06-07 06:00] VITALS: BP 112/52; PULSE 54; RESP 20; TEMP 36.3; O2SAT 98
[2019-06-07] MEDS: CLONAZEPAM 0.5 MG TAB PO ×2 (09:28→20:36)
--- NOTE | 2019-06-07 13:19 | P.PNGS_ITS ---
Progress Note: A&P Assessment and Plan (1) Pneumothorax: Onset Date: 06/02/19 Qualifiers: Pneumothorax type: spontaneous, primary Qualified Code(s): J93.11 - Primary spontaneous pneumothorax Code(s): J93.9 - Pneumothorax, unspecified Status: Acute Assessment and Plan: * Chest tube removed this AM, follow up CXR this afternoon shows recurrent left pneumothorax * Will have to replace chest tube to allow further time for pneumothorax to resolve Subjective Subjective Date/Time Seen: 06/07/19 13:20 Patient feeling well this AM. CXR on water seal showed no residual pneumothorax. Exam Resp: Effort & Inspection: normal respiratory effort Auscultation: clear to auscultation bilaterally Percussion: percussion normal Objective Data Vital Signs Vital Signs: Vital Signs - 24 hr 06/06/19 14:00 06/06/19 20:18 06/06/19 22:00 Temperature 36.7 C 36.6 C Pulse Rate 86 86 82 Respiratory Rate 18 18 21 H Blood Pressure 99/67 L Pulse Oximetry 99 99 100 06/07/19 06:00 Temperature 36.3 C L Pulse Rate 54 L Respiratory Rate 20 Blood Pressure 112/52 L Pulse Oximetry 98 Intake/Output Intake/Output: Intake & Output 06/04/19 06/05/19 06/06/19 06/07/19 23:59 23:59 23:59 23:59 Intake Total 2466 2960 2500 940 Output Total 875 1325 1000 800 Balance 1591 1635 1500 140 Meds/Results Medications: Active Medications Generic Name Dose Route Start Last Admin Trade Name Freq PRN Reason Stop Dose Admin Hydrocodone Bitart/Acetaminophen 1 tab 06/02/19 19:18 06/07/19 09:28 [place] 5-325 Mg PO 1 tab Q6H PRN Administration Pain Rated 4-6 Clonazepam 0.5 mg 06/02/19 22:57 06/07/19 09:28 Klonopin Tablet PO 0.5 mg Q12H PRN Administration Anxiety Morphine Sulfate 2 mg 06/02/19 19:19 06/03/19 03:45 Morphine Sulfate Inj IV PUSH 2 mg Q4H PRN Administration Pain Rated 4-6 Morphine Sulfate 4 mg 06/02/19 19:18 Morphine Sulfate Inj IV PUSH Q4H PRN Pain Rated 7-10 Nicotine 1 patch 06/02/19 23:00 06/07/19 08:45 Nicoderm Cq 21 Mg TRANSDERM 1 patch QAM KASSIE Administration
[2019-06-07 14:05] VITALS: BP 115/68; PULSE 103; RESP 12; TEMP 36.8; O2SAT 98
[2019-06-07 14:30] VITALS: BP 144/77; PULSE 104; RESP 16; TEMP 36.8; O2SAT 100
[2019-06-07] MEDS: MORPHINE SULFATE 2 MG/ML INJ IV PUSH (14:49)
--- NOTE | 2019-06-07 15:25 | PM.PROC ---
Procedure Note - Detailed Date of procedure: 06/07/19 Pre-op diagnosis: Left pneumothorax Post-op diagnosis: same Procedure performed: Left thoracostomy tube placement Description of procedure: Procedure as well as risks benefits and alternatives were explained to the patient. Written consent was obtained and placed in chart prior to procedure. Time-out was done to confirm patient and procedure. Patient was placed in supine position in hospital bed. His left chest area was prepped and draped in sterile fashion using chlorhexidine prep. 1% lidocaine was infiltrated along the left anterior axillary space in the 5th intercostal space. A 1 cm incision was made using a 15 blade scalpel. an introducer needle was then advanced to the 6th rib and then carefully advanced just superior to the rib into the 5th interspace while aspirating. Once I advanced into the pleural cavity, air was able to be aspirated. A Seldinger technique was then used to advance the guidewire in a cephalad anterior direction. The guidewire advanced smoothly. The needle was then withdrawn leaving the guidewire in place. The tract was then dilated serially with dilators. The 16 [place] chest tube was then advanced cephalad and anteriorly. the guidewire was then removed. The chest tube was sutured in place using 0 silk suture. Vaseline gauze was then applied at the insertion site, followed by 4 x 4 gauze and silk tape. The chest tube was applied to -20 cm of water suction. The patient was then sat up in bed and chest x-ray was ordered to confirm placement. Anesthesia: local (1% lidocaine) Surgeon: Luis Eduardo Roca DO Estimated blood loss (mL): 2 Drains: Yes ( 16 [place] chest tube) Complications: No immediate complications Condition: stable Disposition: floor Findings: Patient had a spontaneous left pneumothorax which was initially treated in the emergency department with chest tube placement. He had a an air leak for several days, but then this seemed to resolve and the lung appeared fully expanded on chest x-ray. His chest tube was removed, but follow-up chest x-ray showed recurrent left pneumothorax. Decision was then made to proceed with replacement of left chest tube. Left chest tube was placed successfully. Postprocedure chest x-ray shows re-expansion of the left lung and chest tube in proper position. There is no sign of air leak with the chest tube this time.
[2019-06-07 16:00] VITALS: BP 119/78; PULSE 78; RESP 12; TEMP 36.6; O2SAT 96
[2019-06-07] MEDS: MORPHINE SULFATE 4 MG/ML INJ 2 MG IV PUSH (17:36)
[2019-06-07 22:02] VITALS: BP 100/62; PULSE 88; RESP 18; TEMP 36.6; O2SAT 97
[2019-06-08 06:05] VITALS: BP 110/74; PULSE 82; RESP 16; TEMP 36.4; O2SAT 96
[2019-06-08] MEDS: CLONAZEPAM 0.5 MG TAB PO ×2 (10:20→20:26)
--- NOTE | 2019-06-08 14:41 | PM.TDS ---
Transfer Discharge Sum: Prov Provider Date of admission: 06/02/19 18:20 Primary care physician: UNKNOWN,DOCTOR Admitting clinician: Mj Dodd MD Attending physician on admission: Mj Dodd Attending physician on discharge: Mj Dodd Discharging clinician: Whitney Franco Anticipated date of transfer: 06/08/19 Receiving physician/facility: Dr. Jaime Galaviz at [facility]. DS: Diagnosis Admitting Diagnosis Admitting Diagnosis: Primary spontaneous pneumothorax Discharge Diagnosis (1) Pneumothorax: Onset Date: 06/02/19 Qualifiers: Pneumothorax type: spontaneous, primary Qualified Code(s): J93.11 - Primary spontaneous pneumothorax Code(s): J93.9 - Pneumothorax, unspecified Status: Acute Assessment and Plan: Persistent left pneumothorax. (2) Anxiety: Onset Date: Unknown Code(s): F41.9 - Anxiety disorder, unspecified Status: Acute Transfer Discharge Sum: Med Medications Active and Home Medications: Home Medications clonazepam 0.5 mg PO DAILY PRN 06/02/19 [History Confirmed 06/02/19] Active Medications Hydrocodone Bitart/Acetaminophen ([place] 5-325 Mg) 1 tab PO Q6H PRN PRN Reason: Pain Rated 4-6 Last Admin: 06/08/19 10:20 Dose: 1 tab Documented by: Clonazepam (Klonopin Tablet) 0.5 mg PO Q8H PRN PRN Reason: Anxiety Last Admin: 06/08/19 10:20 Dose: 0.5 mg Documented by: Morphine Sulfate (Morphine Sulfate Inj) 2 mg IV PUSH Q4H PRN PRN Reason: Pain Rated 4-6 Last Admin: 06/07/19 14:49 Dose: 2 mg Documented by: Morphine Sulfate (Morphine Sulfate Inj) 4 mg IV PUSH Q4H PRN PRN Reason: Pain Rated 7-10 Nicotine (Nicoderm Cq 21 Mg) 1 patch TRANSDERM QAM KASSIE Last Admin: 06/08/19 10:20 Dose: 1 patch Documented by: Ondansetron HCl (Zofran Inj) 4 mg IV PUSH Q4H PRN PRN Reason: Nausea And Vomiting Transfer Discharge Sum: Hosp Hospital Course Hospital course: Favian Burris is a 24 year old smoking male who presented to the emergency department on 06/02/19 with findings of a spontaneous left pneumothorax. A left-sided chest tube was placed in the ED to suction. The patient was followed with serial exams and chest x-rays to monitor the progression of the chest tube. He did develop an air leak with the initial chest tube. His lung did re-expand and when the chest tube was placed on water seal, interestingly, he did not have evidence of an air leak. Therefore, a repeat chest x-ray was done yesterday morning and showed no evidence of a pneumothorax. The decision was made to remove the chest tube yesterday. Later that day, the patient developed a large left pneumothorax and a left-sided chest tube had to be placed again. After placement of the second chest tube, there was no initial air leak. On my exam today, the patient had an air leak on exam and his chest x-ray this morning showed a moderate-sized left pneumothorax with the chest tube in place. At this point, the patient needs evaluation by a Thoracic Surgeon for possible pleurodesis or thoracic surgical intervention. I discussed this with the patient this morning and he verbalized understanding. All questions were answered. I called and spoke with Dr. Jaime Galaviz with [facility] at [facility], who accepted the patient for transfer. They are now working on bed placement. Time Spent with Patient Time attestation: Total time spent providing and/or coordinating transfer services: Total time spent: Greater than 30 minutes Exam Const: General: no acute distress, alert and awake Orientation/consciousness: oriented x3 Resp: Effort & Inspection: normal respiratory effort, able to speak in complete sentences and no respiratory distress Auscultation: clear to auscultation bilaterally Other: Left lateral chest tube in place. Persistent air leak noted on wall suction. Crepitus noted posteriorly from chest tube dressing. Tubings checked and secure. Cardio: Rate:
[2019-06-08 16:00] VITALS: BP 118/69; PULSE 79; RESP 18; TEMP 37; O2SAT 99
[2019-06-08 20:00] VITALS: BP 110/66; PULSE 96; RESP 20; TEMP 36.8; O2SAT 99
--- NOTE | 2019-06-09 02:35 | PC.NURSE ---
Pt discharge per [facility] to [place]. Paperwork completed chest tube clamped on way to [facility]. Copy of chart with ambulance crew.
== END 2019-06-09 02:35 | disposition short-term general hospital (02) | DRG 143 ==
LOC: ANHED 18:27 → ANH2MED 18:47
PROVIDERS: Admitting Provider Surgery; Emergency Provider Emergency Medicine; Visit Provider Surgery
DX: J93.11 Primary spontaneous pneumothorax (principal); F41.9 Anxiety disorder, unspecified
CPT/HCPCS: 32551; 36415; 71045; 71046; 80048; 84484; 85025; 85610; 85730; 93005; 96374; 96375; 99291; A9270; C1729; J1885; J2060; J2270; J3010; J7030

== ENCOUNTER 2019-08-13 19:34 | Emergency (ER) | payer SELFPAY ==
--- NOTE | ~2019-08-13 | XR_ITS ---
XR chest 2V 08/13/2019 20:11 Indication: Left-sided chest pain. History of pneumothorax. Procedure: 2 view chest Comparison: Comparison to multiple prior studies sequentially, with oldest reviewed study dated 10/2019. Findings: There is a small left pneumothorax. No mediastinal shift. Heart size normal. Right lung parvin ar. No focal pneumonia, pleural effusion or edema. Impression: 1: Small left pneumothorax. Reviewed, dictated and finalized at location A. Impression: 1: Small left pneumothorax.
[2019-08-13 19:38] VITALS: BP 124/70; PULSE 103; RESP 16; TEMP 36.5; O2SAT 100
--- NOTE | 2019-08-13 19:41 | ECG_ITS ---
Measurements Intervals [place] Rate: 90 P: 78 WV: 138 QRS: 68 QRSD: 99 T: 68 QT: 325 QTc: 398 Interpretive Statements SINUS RHYTHM POSSIBLE RIGHT ATRIAL ENLARGEMENT INCOMPLETE RIGHT BUNDLE BRANCH BLOCK PEAKED T WAVES- CONSIDER HYPERKALEMIA OR ISCHEMIA BASELINE ARTIFACT- AVL, AVF ABNORMAL ECG Electronically Signed On 08-14-2019 7:01:00 CDT by Stan Yen D.O.
[2019-08-13 19:45] VITALS: BP 122/83; PULSE 85; RESP 16; TEMP 36.6; O2SAT 100
--- NOTE | 2019-08-13 19:58 | ED.GENADULT ---
HPI - General Adult General Chief complaint: Chest Pain <Clinton Lewis PA-C - Last Filed: 08/13/19 23:04> Stated complaint: LEFT UPPER CHEST PAIN <Clinton Lewis PA-C - Last Filed: 08/13/19 23:04> Time Seen by Provider: 08/13/19 19:43 <Clinton Lewis PA-C - Last Filed: 08/13/19 23:04> Source: patient <Clinton Lewis PA-C - Last Filed: 08/13/19 23:04> Mode of arrival: ambulatory <Clinton Lewis PA-C - Last Filed: 08/13/19 23:04> Limitations: no limitations <Clinton Lewis PA-C - Last Filed: 08/13/19 23:04> History of Present Illness HPI narrative: Patient is a 24-year-old male who presents to emergency department for evaluation of left-sided chest pain for the last 5 hours noting that he woke with the pain which is a moderate aching pain worse with breathing and movement patient notes history of pneumothorax in the past patient on arrival is not taking anything for his symptoms denies radiation of pain any URI symptoms or other complaints <Clinton Lewis PA-C - Last Filed: 08/13/19 23:04> Related Data Home medications: Home Medications Medication Instructions Recorded Confirmed clonazepam 0.5 mg PO DAILY PRN 06/02/19 06/02/19 <Clinton Lewis PA-C - Last Filed: 08/13/19 23:04> Allergies/adverse reactions: Allergies Allergy/AdvReac Type Severity Reaction Status Date / Time No Known Allergies Allergy Verified 08/13/19 19:47 <Clinton Lewis PA-C - Last Filed: 08/13/19 23:04> Review of Systems Review of Systems: All systems reviewed & are unremarkable except as noted in HPI and below <Clinton Lewis PA-C - Last Filed: 08/13/19 23:04> [facility] Past Medical History Medical History: Medical History (Updated 08/13/19 @ 21:50 by Clinton Lewis PA-C) Anxiety (Unknown) Asthma Bronchitis Depression <Clinton Lewis PA-C - Last Filed: 08/13/19 23:04> Surgical History Surgical History: Surgical History (Updated 03/12/20 @ 20:00 by Clinton Lewis PA-C) History of thoracic surgery No significant past surgical history <Clinton Lewis PA-C - Last Filed: 08/13/19 23:04> Family History Family History: Family History (Updated 06/02/19 @ 20:27 by Nick Iglesias RN) Mother Panic attack Anxiety Mitral valve prolapse <Clinton Lewis PA-C - Last Filed: 08/13/19 23:04> Social History Social History: Social History Smoking packs per day: 1.5 Smoking cigarettes per day: 30.0 Years smoked: 12 Smoking pack-years: 18.00 Smoking status: Current every day smoker Tobacco type: cigarettes Second hand tobacco smoke exposure: Yes Alcohol intake: current Drinks per week: 1 Substance use: current Substance use type: marijuana Last use: 06/02/2019 Gender identity (if verbalized by the patient): Male Spiritual care concerns: No Agree to blood products: Yes <Clinton Lewis PA-C - Last Filed: 08/13/19 23:04> Exam Narrative: Exam Narrative: GENERAL: Well-appearing, well-nourished, and in no acute distress. HEAD: Normocephalic, atraumatic. EYES: PERRLA and EOMI. ENT: Nares clear, no rhinorrhea or epistaxis. Mucous membranes moist. NECK: Supple. No adenopathy or masses. CHEST: Clear to auscultation. No respiratory distress. No wheezes rales or rhonchi HEART: Regular rate and rhythm. No murmur heard. Normal peripheral pulses. ABDOMEN: Soft, nontender, nondistended EXTREMITIES: Normal range of motion. No edema. SKIN: Warm, dry, no rash. NEURO: No focal deficits. Alert and oriented x3. PSYCH: Normal mood and affect. <Clinton Lewis PA-C - Last Filed: 08/13/19 23:04> Course [employer]MENT TECHNICIAN/PA Physician Supervision Patient presented to the emergency department with a history of pneumothorax, found to have a very small left-sided pneumothorax on x-ray. Patient with stable vital signs, no tachypnea or hypoxia.
[2019-08-13 20:02] LABS: Basophils Percent Auto 0.4 % (0.2-1.2); Eosinophils Absolute Auto 0.2 K/mm3 (0-0.3); Eosinophils Percent Auto 1.5 % (0-4.4); Hematocrit 47.9 % (42.0-52.0); Hemoglobin 15.9 g/dL (14.0-18.0); Immature Granulocyte Absolute 0.04 K/mm3 (0.00-0.031); Immature Granulocyte Percent A 0.4 % (0-0.5); Lymphocytes Absolute Auto 2.28 K/mm3 (0.9-3.2); Lymphocytes Percent Auto 22.8 % (18.3-44.2); Mean Corpuscular HGB Conc 33.2 g/dl (32-36); Mean Corpuscular Hemoglobin 30.4 pg (26-34); Mean Corpuscular Volume 91.6 fl (80-100); Mean Platelet Volume 9.2 fl (7.4-10.4); Monocytes Absolute Auto 0.7 K/mm3 (0.1-0.6); Monocytes Percent Auto 6.6 % (2.6-8.5); Neutrophils Absolute Auto 6.8 K/mm3 (1.3-6.7); Neutrophils Percent Auto 68.3 % (45.5-73.1); Platelet Count Result 254 k/mm3 (150-375); Red Blood Count 5.23 M/mm3 (4.6-6.20); Red Cell Distribution Width 12.9 % (11.5-14.5)
[2019-08-13 20:13] LABS: Prothrombin Time 12.7 Seconds (11.1-14.7)
[2019-08-13 20:14] LABS: Partial Thromboplastin Time 29.8 SECONDS (22.3-36.8)
[2019-08-13] MEDS: KETOROLAC 30 MG/ML VIAL (*BKC) IV PUSH (20:16)
[2019-08-13] MEDS: ASPIRIN 81 MG CHEWABLE TABLET 324 MG PO (20:17)
[2019-08-13 20:18] LABS: Blood Urea Nitrogen 11 mg/dL (9-20); Calcium 9.9 mg/dL (8.4-10.2); Carbon Dioxide 29 mmol/L (22-30); Chloride 103 mmol/L (98-107); Estimated CRCL calculation 97 ml/min; Estimated Glomerular Filt Rate > 60; Glucose 90 mg/dL (75-110); Potassium 3.6 mmol/L (3.4-5.0); Sodium 140 mmol/L (137-145)
[2019-08-13 20:24] LABS: D Dimer 0.27 ug/mL (<0.48)
[2019-08-13 20:30] LABS: Troponin I < 0.012 ng/mL (0.000-0.034)
[2019-08-13 20:48] VITALS: BP 107/72; PULSE 77; RESP 11; O2SAT 100
[2019-08-13 20:54] LABS: Amphetamine Screen Urine Negative (Negative); Barbiturate Screen Urine Negative (Negative); Benzodiazepines Screen Urine Negative (Negative); Cannabinoid Screen Urine Negative (Negative); Cocaine Screen Urine Negative (Negative); Methadone Screen Urine Negative (Negative); Opiate Screen Urine Negative (Negative); Phencyclidine Screen Urine Negative (Negative)
[2019-08-13 21:28] VITALS: BP 105/64; PULSE 93; RESP 19; O2SAT 100
--- NOTE | 2019-08-13 21:33 | PC.NURSE ---
spoke to mary strickland ravenna, she asked triage questions. she states she will call back w/ bed on pt.
[2019-08-13] MEDS: LORAZEPAM 0.5 MG TABLET PO (22:17)
[2019-08-13 22:32] VITALS: BP 117/76; PULSE 86; RESP 12; O2SAT 100
[2019-08-13 23:09] VITALS: BP 102/80; PULSE 79; RESP 16; TEMP 36.7; O2SAT 100
== END 2019-08-13 23:14 | disposition left against medical advice (07) ==
PROVIDERS: Emergency Medicine; Emergency Medicine Emergency Medical Services; Emergency Provider Emergency Medicine
DX: J93.9 Pneumothorax, unspecified (principal); F41.9 Anxiety disorder, unspecified; J45.909 Unspecified asthma, uncomplicated; F32.9 Major depressive disorder, single episode, unspecified; F17.210 Nicotine dependence, cigarettes, uncomplicated; I45.10 Unspecified right bundle-branch block; R94.31 Abnormal electrocardiogram [ECG] [EKG]
CPT/HCPCS: 36415; 71046; 80048; 80307; 84484; 85025; 85380; 85610; 85730; 93005; 96374; 99284; A9270; J1885

== ENCOUNTER 2019-11-28 11:34 | Emergency (ER) | payer MEDICAID, SELFPAY ==
--- NOTE | ~2019-11-28 | XR_ITS ---
EXAMINATION: XR chest 1V portable EXAM DATE: 11/28/2019 12:53 INDICATION: Fever and body aches, chills. History of pneumothorax and March. TECHNIQUE: Portable AP frontal chest x-ray was obtained. Comparison is made to prior examination from 08/13/2019. FINDINGS: Severe chronic hyperinflation. Previously seen small left pneumothorax has resolved. No foc al airspace disease or pleural effusion. Cardiomediastinal silhouette is normal. There are no osseous abnormalities identified. IMPRESSION: 1. Hyperinflation. 2. No acute cardiopulmonary findings. Reviewed, dictated and finalized at location A.
[2019-11-28 11:39] VITALS: BP 124/79; PULSE 100; RESP 18; TEMP 36.8; O2SAT 98
--- NOTE | 2019-11-28 11:45 | ED.GENADULT ---
HPI - General Adult General Chief complaint: Unspecified Stated complaint: FEVER,CHILLS,BODY ACHES,SORE THROAT Time Seen by Provider: 11/28/19 11:44 Source: patient Mode of arrival: ambulatory Limitations: no limitations History of Present Illness HPI narrative: 24-year-old male patient presents to the [facility] with complaints of body aches, chills, sore throat and increasing fatigue. Patient denies any chest pain or shortness of breath. Denies any fevers that he is aware of. Patient denies any abdominal pain, nausea, vomiting or diarrhea. Patient states he is currently working at [employer] and states he does come into contact with customers. Patient states he is concerned that he might have COVID. Patient does have history of multiple lung issues including collapsed lung this past June in which he was sent to [facility]. Patient states he no longer smokes. Related Data Home Medications Medication Instructions Recorded Confirmed clonazepam 0.5 mg PO DAILY PRN 06/02/19 06/02/19 Allergies Allergy/AdvReac Type Severity Reaction Status Date / Time No Known Allergies Allergy Verified 11/28/19 12:00 Review of Systems Review of Systems: Narrative: CONSTITUTIONAL: Denies fever, positive chills, denies sweats. Positive fatigue EYES: Denies visual changes, redness, or discharge. ENT: Denies rhinorrhea, congestion, positive sore throat, denies otalgia. CARDIOVASCULAR: Denies chest pain, palpitations, or edema. RESPIRATORY: Denies cough or dyspnea. GASTROINTESTINAL: Denies abdominal pain, nausea, vomiting, or diarrhea. GENITOURINARY: Denies dysuria or hematuria. SKIN: Denies rash or itching. MUSCULOSKELETAL: Denies back pain, joint pain, or myalgia. NEUROLOGIC: Denies headache, numbness, or weakness. PSYCHIATRIC: Denies anxiety or depression. [facility] Past Medical History Medical History Anxiety (Unknown) Asthma Bronchitis Depression Surgical History Surgical History History of thoracic surgery No significant past surgical history Family History Family History Mother Panic attack Anxiety Mitral valve prolapse Social History Social History Smoking packs per day: 1.5 Smoking cigarettes per day: 30.0 Years smoked: 12 Smoking pack-years: 18.00 Smoking status: Current every day smoker Tobacco type: cigarettes Second hand tobacco smoke exposure: Yes Alcohol intake: current Drinks per week: 1 Substance use: current Substance use type: marijuana Last use: 06/02/2019 Gender identity (if verbalized by the patient): Male Spiritual care concerns: No Agree to blood products: Yes Comments At the time of my signature I agree with nursing past medical history, surgical, social, and family history. There is no relevant family history pertinent to the presenting complaint. Exam Narrative: Exam Narrative: GENERAL: Well-appearing, well-nourished, and in no acute distress. HEAD: Normocephalic, atraumatic. EYES: PERRLA and EOMI. ENT: Nares with erythema and edema noted to the left side patent, no rhinorrhea or epistaxis. Mucous membranes moist. Posterior pharynx with slight erythema no tonsillar enlargement, no exudates or lesions present. NECK: Supple. No lymphadenopathy CHEST: Clear to auscultation. No respiratory distress. Patient able talk in clear complete sentences. No coughing or tripoding noted. HEART: Regular rate and rhythm. No murmur heard. Normal peripheral pulses. ABDOMEN: Soft, nontender, nondistended, normal active bowel sounds. EXTREMITIES: Normal range of motion. No edema. SKIN: Warm, dry, no rash. NEURO: No focal deficits. Alert and oriented x3. Course Reevaluation(s) Reevaluation #1: Patient resting on stretcher in no acute distress. Patient talking on
[2019-11-28 12:27] VITALS: RESP 18
[2019-11-30 18:54] LABS: SARS-CoV-2 RNA PCR Negative
== END 2019-11-28 13:53 | disposition home or self-care (01) ==
PROVIDERS: Emergency Provider Nurse Practitioner Family; PCP Physician Assistant
DX: J06.9 Acute upper respiratory infection, unspecified (principal); J02.9 Acute pharyngitis, unspecified; F41.9 Anxiety disorder, unspecified; F32.9 Major depressive disorder, single episode, unspecified; J45.909 Unspecified asthma, uncomplicated; F17.210 Nicotine dependence, cigarettes, uncomplicated
CPT/HCPCS: 71045; 71046; 87081; 87635; 87880; 99283; C9803; U0003

== ENCOUNTER 2023-03-03 04:54 | Emergency (ER) | payer SELFPAY ==
[2023-03-03] VITALS (13 sets, daily range): BP systolic 95–118; BP diastolic 50–72; PULSE 66–97; RESP 12–23; TEMP 36.6; O2SAT 94–99
--- NOTE | 2023-03-03 05:16 | ECG_ITS ---
Measurements Intervals [place] Rate: 80 P: 77 DE: 161 QRS: 81 QRSD: 110 T: 69 QT: 356 QTc: 411 Interpretive Statements SINUS RHYTHM WITH MARKED SINUS ARRHYTHMIA NORMAL ECG COMPARED TO ECG 08/13/2019 19:50:08 SINUS ARRHYTHMIA NOW PRESENT Electronically Signed On 03-03-2023 9:29:47 CDT by Modesto Durham M.D.
[2023-03-03 05:26] LABS: Glucose Point of Care 78 mg/dl (65-105)
[2023-03-03 05:33] LABS: Basophils Absolute Auto 0.1 K/mm3 (0.0-0.1); Basophils Percent Auto 0.4 % (0.2-1.2); Eosinophils Absolute Auto 0.2 K/mm3 (0-0.3); Hematocrit 46.3 % (42.0-52.0); Hemoglobin 15.4 g/dL (14.0-18.0); Immature Granulocyte Absolute 0.05 K/mm3 (0.00-0.031); Immature Granulocyte Percent A 0.4 % (0-0.5); Lymphocytes Percent Auto 20.6 % (18.3-44.2); Mean Corpuscular HGB Conc 33.3 g/dl (32-36); Mean Corpuscular Hemoglobin 31.1 pg (26-34); Mean Corpuscular Volume 93.5 fl (80-100); Monocytes Absolute Auto 0.8 K/mm3 (0.1-0.6); Monocytes Percent Auto 6.9 % (2.6-8.5); Neutrophils Absolute Auto 8.1 K/mm3 (1.3-6.7); Neutrophils Percent Auto 69.7 % (45.5-73.1); Platelet Count Result 240 k/mm3 (150-375); Red Blood Count 4.95 M/mm3 (4.6-6.20); Red Cell Distribution Width 13.1 % (11.5-14.5); White Blood Count 11.6 K/mm3 (4.5-10.0)
--- NOTE | 2023-03-03 05:36 | PC.NURSE ---
Called poison control, spoke with VALERIA Martínez informed them of patient and his symptoms. Tanya states to monitor for [employer] depression and symptomatic hypotension and to treat as needed. She states to order basic labs and tox screens as needed. She also states do not use reversal agents. ERP notified.
[2023-03-03 05:45] LABS: Alanine Aminotransferase 18 U/L (6-50); Albumin Level 4.8 g/dL (3.5-5.1); Alkaline Phosphatase 54 U/L (38-126); Anion Gap 7 mmol/L (8-16); Aspartate Amino Transferase 25 U/L (17-59); Bilirubin,Total 1.1 mg/dL (0.2-1.3); Blood Urea Nitrogen 10 mg/dL (9-20); Calcium 9.4 mg/dL (8.4-10.2); Carbon Dioxide 30 mmol/L (22-30); Chloride 100 mmol/L (98-107); Estimated CRCL calculation 100 ml/min; Estimated Glomerular Filt Rate > 60; Glucose 97 mg/dL (65-110); Potassium 3.4 mmol/L (3.4-5.0); Sodium 137 mmol/L (137-145)
[2023-03-03 05:56] LABS: Acetaminophen < 10 ug/mL (10-30); Ethanol < 10 mg/dL (<10); Salicylate < 1.0 mg/dL (2-20)
[2023-03-03 06:08] LABS: Troponin I < 0.012 ng/mL (0.000-0.034)
--- NOTE | 2023-03-03 06:11 | ED.GENADULT ---
HPI - General Adult General Chief complaint: Unspecified Stated complaint: OD, xanax? Time Seen by Provider: 03/03/23 05:13 History of Present Illness HPI narrative: This is a 28-year-old male, with past history of spontaneous pneumothorax, who presents to the emergency department complaining of drowsiness and concern for accidental overdose. The patient states he was partying, when he was offered 2 bars of Xanax and several tablets of Klonopin. He denies use of other drugs or alcohol. He presents emergency department with his mother for with concern for drowsiness. He also complains of intermittent sharp left chest wall pain. Related Data Home Medications Medication Instructions Recorded Confirmed clonazepam 0.5 mg tablet 0.5 mg PO DAILY PRN Anxiety 06/02/19 06/02/19 Allergies Allergy/AdvReac Type Severity Reaction Status Date / Time No Known Allergies Allergy Verified 11/28/19 12:00 Review of Systems Review of Systems: CONSTITUTIONAL: Denies fever, chills, or sweats. CARDIOVASCULAR: Intermittent left chest wall pain denies palpitations, or edema. RESPIRATORY: Denies cough or dyspnea. GASTROINTESTINAL: Denies abdominal pain, nausea, vomiting, or diarrhea. GENITOURINARY: Denies dysuria or hematuria. SKIN: Denies rash or itching. MUSCULOSKELETAL: Denies back pain, joint pain, or myalgia. NEUROLOGIC: Denies headache, numbness, dizziness, or weakness. PSYCHIATRIC: Denies anxiety or depression. Denies suicidal or homicidal ideations PMFSH Past Medical History Medical History (Updated 03/03/23 @ 06:16 by Alex Miller MD) Anxiety (Unknown) Asthma Bronchitis Depression Surgical History Surgical History History of thoracic surgery No significant past surgical history Family History Family History Mother Panic attack Anxiety Mitral valve prolapse Social History Social History Smoking packs per day: 1.5 Smoking cigarettes per day: 30.0 Years smoked: 12 Smoking pack-years: 18.00 Smoking status: Current every day smoker Tobacco type: cigarettes Second hand tobacco smoke exposure: Yes Alcohol intake: current Drinks per week: 1 Substance use: current Substance use type: marijuana Last use: 06/02/2019 Gender identity (if verbalized by the patient): Male Spiritual care concerns: No Agree to blood products: Yes Exam Narrative: GENERAL: Well-developed, well-nourished, and in no acute distress. HEAD: Normocephalic, atraumatic. EYES: PERRLA and EOMI. ENT: Nares clear, no rhinorrhea or epistaxis. Mucous membranes moist. Oropharynx without tonsillar hypertrophy exudate or other lesions. CHEST: Clear to auscultation. No respiratory distress. No wheezes rales or rhonchi HEART: Regular rate and rhythm. No murmur heard. Normal peripheral pulses. ABDOMEN: Soft, nontender, nondistended, normal active bowel sounds. EXTREMITIES: Normal range of motion. No edema. SKIN: Warm, dry, no rash. NEURO: Alert and oriented x3. Strength 5/5 in all extremities, sensation intact bilaterally, no noted ataxia, cranial nerves II through XII intact PSYCH: Normal mood and affect. Course Course Emergency Course: 05:50 - VALERIA Ware contacted poison control who recommends observation and rule out of other toxic ingestions. Reversal agents are advised against at this time. 07:00 - Salicylate and acetaminophen negative. Ethanol level negative. Troponin negative. Chemistries unremarkable. CBC demonstrates slightly elevated white blood cell count of 11.6 but is otherwise unremarkable. EKG not concerning for ischemia. The patient was seen ambulating several times in the emergency department without difficulty. His mother is willing to take responsibility for him. Will discharge. Discussed return and emergency precaution
== END 2023-03-03 08:20 | disposition home or self-care (01) ==
PROVIDERS: Emergency Provider Preventive Medicine Aerospace Medicine
DX: T42.4X1A Poisoning by benzodiazepines, accidental (unintentional), initial encounter (principal); R40.0 Somnolence; F13.10 Sedative, hypnotic or anxiolytic abuse, uncomplicated; J45.909 Unspecified asthma, uncomplicated; F41.9 Anxiety disorder, unspecified; F32.A Depression, unspecified; F17.210 Nicotine dependence, cigarettes, uncomplicated
CPT/HCPCS: 36415; 80053; 80307; 82948; 84484; 85025; 93005; 99284

== ENCOUNTER 2023-08-13 13:30 | Emergency (ER) | payer SELFPAY ==
[2023-08-13] VITALS (14 sets, daily range): BP systolic 100–138; BP diastolic 60–92; PULSE 69–103; RESP 17–29; TEMP 36.7; O2SAT 96–99
--- NOTE | ~2023-08-13 | XR_ITS ---
EXAMINATION: XR chest 2V Exam Date/Time: 08/13/2023 15:28 CDT HISTORY: URI symptoms, hx of spontaneous pneumothorax, CPx3 days Comparison: 11/28/2019, 08/13/2019. RESULT: Lines, tubes, and devices: None. Lungs and pleura: Streaky perihilar opacities with cuffing. Suture line in the left upper lung. No f ocal consolidation, pleural effusion, or pneumothorax. Cardiomediastinal silhouette: Stable. Other: No acute osseous or upper abdominal finding. IMPRESSION: Pulmonary opacities may represent viral bronchiolitis or reactive airways disease, depending on the c linical context. Reviewed, dictated and finalized at location K. IMPRESSION: Pulmonary opacities may represent viral bronchiolitis or reactive airways disea se, depending on the clinical context.
--- NOTE | 2023-08-13 14:46 | ED.URI ---
HPI - URI/Sore Throat General Chief Complaint: Upper Respiratory Infection Stated Complaint: vomiting, fever, chills X3 days Time Seen by Provider: 08/13/23 13:51 History of Present Illness HPI Narrative: 28-year-old male presenting with body aches and chills. For the last 3 days she states that she has felt generally unwell and has had trouble sleeping due to the body aches. States that he has had a cough but no shortness of breath or chest pain. He does have a history of asthma and has been using his inhaler with some improvement in his cough. States that he vomited several days ago but has not since. He has been able to eat and drink normally. No abdominal pain, dysuria, flank pain, diarrhea. Related Data Home Medications Medication Instructions Recorded Confirmed clonazepam 0.5 mg tablet 0.5 mg PO DAILY PRN Anxiety 06/02/19 06/02/19 Allergies Allergy/AdvReac Type Severity Reaction Status Date / Time No Known Allergies Allergy Verified 08/13/23 13:48 Review of Systems Review of Systems: All systems reviewed & are unremarkable except as noted in HPI and below PMFSH Past Medical History Medical History (Updated 08/14/23 @ 00:00 by America Elizabeth) Anxiety (Unknown) Asthma Bronchitis Depression Surgical History Surgical History History of thoracic surgery No significant past surgical history Family History Family History Mother Panic attack Anxiety Mitral valve prolapse Social History Social History Smoking packs per day: 1.5 Smoking cigarettes per day: 30.0 Years smoked: 12 Smoking pack-years: 18.00 Smoking status: Current every day smoker Tobacco type: cigarettes Second hand tobacco smoke exposure: Yes Alcohol intake: current Drinks per week: 1 Substance use: current Substance use type: marijuana Last use: 06/02/2019 Gender identity (if verbalized by the patient): Male Spiritual care concerns: No Agree to blood products: Yes Exam Narrative: GENERAL: Nontoxic, no acute distress, pleasant cooperative HEAD: Normocephalic, atraumatic. EYES: PERRLA and EOMI. ENT: grossly unremarkable NECK: Supple. CHEST: No respiratory distress. scattered expiratory wheezing HEART: Regular rate and rhythm ABDOMEN: Soft, nontender, nondistended EXTREMITIES: Normal range of motion. SKIN: Warm, dry, no rash. NEURO: Alert and oriented x3. PSYCH: Normal mood and affect. Course Vital Signs Vital signs: Vital Signs Temperature 98.1 F 08/13/23 13:32 Pulse Rate 103 H 08/13/23 13:32 Respiratory Rate 20 08/13/23 13:32 Blood Pressure 138/92 H 08/13/23 13:32 Pulse Oximetry 99 08/13/23 13:32 Oxygen Delivery Room Air 08/13/23 13:32 Temperature 98.1 F 08/13/23 13:32 Pulse Rate 72 08/13/23 16:23 Respiratory Rate 19 08/13/23 16:23 Blood Pressure 100/60 08/13/23 16:23 Pulse Oximetry 98 08/13/23 16:23 Oxygen Delivery Room Air 08/13/23 13:46 MDM - URI/Sore Throat MDM Narrative Medical decision making narrative: 28-year-old male presenting with body aches and viral symptoms. Vitals stable. Exam remarkable for the above. Patient is positive for influenza A. Chest x-ray with evidence of reactive airway disease. Patient was provided with an inhaler, states that it did help his symptoms. Discussed appropriate supportive care and PCP follow-up. Appropriate return precautions given. Patient is agreeable with this plan. Discharged in stable condition. Differential Diagnosis Differential diagnosis: Likely upper respiratory infection, viral infection and influenza Medical Records Attestation: I reviewed the patient's medical records. Lab Data Attestation: I reviewed the patient's lab results. Labs: Lab Results 08/13/23 Range/Units 13:59
[2023-08-13 14:50] LABS: Influenza A QL RT-PCR Positive (Negative); Influenza B QL RT-PCR Negative (Negative); RSV RNA, RT-PCR Negative (Negative); SARS-CoV-2 RNA PCR Negative (Negative)
[2023-08-13] MEDS: KETOROLAC 30 MG/ML VIAL (*BKC) IM (15:03)
[2023-08-13] MEDS: ALBUTEROL SULFATE (*SP) AEROSOL 1 PUFF 2 PUFF INHALATION (15:47)
== END 2023-08-13 16:24 | disposition home or self-care (01) ==
PROVIDERS: Emergency Provider Emergency Medicine; Referring Provider Emergency Medicine
DX: J10.1 Influenza due to other identified influenza virus with other respiratory manifestations (principal); Z20.822 Contact with and (suspected) exposure to COVID-19; J45.909 Unspecified asthma, uncomplicated; F41.9 Anxiety disorder, unspecified; F32.A Depression, unspecified; F17.210 Nicotine dependence, cigarettes, uncomplicated
CPT/HCPCS: 71046; 87637; 94664; 96372; 99283; A9270; J1885

== ENCOUNTER 2023-11-07 04:20 | Emergency (ER) | payer MEDICAID, SELFPAY ==
[2023-11-07 04:26] VITALS: BP 134/85; PULSE 63; RESP 14; TEMP 36.8; O2SAT 98
--- NOTE | 2023-11-07 05:02 | ED.DENTAL ---
HPI - Dental/Oral General Chief complaint: Dental/Oral Stated complaint: dental pain Time Seen by Provider: 11/07/23 05:01 History of Present Illness HPI Narrative: Patient is a 28-year-old male who presents the emergency department this morning complaining of left upper dental pain patient admits that he has been having this issue for a while but throughout the past 24 hours the pain has been severe and overnight it has prevented him from being able to sleep. Patient denies any fevers or chills at home and is currently denying any additional symptoms or concerns. Related Data Allergies Allergy/AdvReac Type Severity Reaction Status Date / Time No Known Allergies Allergy Verified 11/07/23 04:28 Review of Systems Review of Systems: All systems are reviewed and are negative unless stated otherwise in the HPI. [facility] Past Medical History Medical History (Updated 11/07/23 @ 05:07 by Irene Coon MD) Anxiety (Unknown) Asthma Bronchitis Depression Surgical History Surgical History History of thoracic surgery No significant past surgical history Family History Family History Mother Panic attack Anxiety Mitral valve prolapse Social History Social History Smoking packs per day: 1.5 Smoking cigarettes per day: 30.0 Years smoked: 12 Smoking pack-years: 18.00 Smoking status: Current every day smoker Tobacco type: cigarettes Second hand tobacco smoke exposure: Yes Alcohol intake: current Drinks per week: 1 Substance use: current Substance use type: marijuana Last use: 06/02/2019 Gender identity (if verbalized by the patient): Male Spiritual care concerns: No Agree to blood products: Yes Exam Narrative: General: Alert, awake, afebrile, in moderate distress. HEENT: PERRL, no rhinorrhea, no post nasal drip, oropharynx clear poor oral hygiene with dental caries involving almost every tooth, left 2nd upper tooth is broken and painful to touch, no abscess noted. Cardiovascular: Regular rate and rhythm, no murmurs, rubs or gallops, no peripheral edema. Respiratory: Clear to auscultation bilaterally, no tachypnea, no wheezing, no rhonchi, no rubs, no respiratory distress. Abdomen: Soft, nontender, nondistended, no rebound, no guarding, no peritoneal signs. Musculoskeletal: No joint swelling or deformity, normal muscle tone. Skin: No rashes or petechia, no signs of infection. Neurological: Alert and oriented to person, place, and time. Follows all commands. No focal deficits, speech is clear and fluent. Course Vital Signs Vital signs: Vital Signs Temperature 98.3 F 11/07/23 04:26 Pulse Rate 63 11/07/23 04:26 Respiratory Rate 14 11/07/23 04:26 Blood Pressure 134/85 11/07/23 04:26 Pulse Oximetry 98 11/07/23 04:26 Oxygen Delivery Room Air 11/07/23 04:26 Temperature 98.3 F 11/07/23 04:26 Pulse Rate 63 11/07/23 04:26 Respiratory Rate 14 11/07/23 04:26 Blood Pressure 134/85 11/07/23 04:26 Pulse Oximetry 98 11/07/23 04:26 Oxygen Delivery Room Air 11/07/23 04:26 MDM - Dental/Oral MDM Narrative Medical decision making narrative: The patient was evaluated by myself in the emergency department. History is obtained from patient who is an independent historian and physical exam was performed. External medical records were reviewed at this time. Patient was administered an oral [place] 7.5/325 mg at this time. Differential diagnosis considerations include dental caries versus dental abscess. Comorbidities impacting this visit include poor dental hygiene. I have evaluated and discussed social determinants of health with the patient that could potentially impact subsequent diagnosis and treatment plans. On repeat assessment of the patient, reevaluation revealed that th
--- NOTE | 2023-11-07 05:05 | PC.NURSE ---
Pt and mother both updated that we are currently waiting on injectable medication from the pharmacy. Mother verbalized You should be doing something, this is ridiculous to leave him like this. He is literally rocking in pain. This rn re-explained that medication for the dr to do the nerve block is coming from the pharmacy and we are just waiting on it to arrive from pharmacy for her to do the procedure.
--- NOTE | 2023-11-07 05:17 | PC.NURSE ---
Was explained to pt that we are waiting for a medication to come up from pharmacy, Pt then states I've been waiting here freaking the fuck out and you guys aren't doing shit for me Pt then states that he is leaving and gets up and ambulates swiftly out of the room. Pt's mother then proceeded to put up her middle finger at this RN at the nurses station and then ambulated out of the ED w/ pt.
== END 2023-11-07 05:33 | disposition left against medical advice (07) ==
PROVIDERS: Emergency Provider Emergency Medicine
DX: K02.9 Dental caries, unspecified (principal); J45.909 Unspecified asthma, uncomplicated; F17.210 Nicotine dependence, cigarettes, uncomplicated
CPT/HCPCS: 99283

== ENCOUNTER 2023-11-07 07:14 | Emergency (ER) | payer MEDICAID, SELFPAY ==
[2023-11-07 07:24] VITALS: BP 126/73; PULSE 77; RESP 18; TEMP 36.3; O2SAT 99
--- NOTE | 2023-11-07 07:46 | ED.DENTAL ---
HPI - Dental/Oral General Chief complaint: Dental/Oral Stated complaint: tooth pain Time Seen by Provider: 11/07/23 07:43 History of Present Illness HPI Narrative: Pt presents with continued dental pain. Pt was seen here over night and left due to frustration with delays. Pt had script for abx and norco sent but was not aware. Pt would like a shot of something for pain. Pt denies fever or swelling. Related Data Allergies Allergy/AdvReac Type Severity Reaction Status Date / Time No Known Allergies Allergy Verified 11/07/23 07:15 Review of Systems Review of Systems: All systems reviewed & are unremarkable except as noted in HPI and below PMFSH Past Medical History Medical History (Updated 11/07/23 @ 07:50 by Mell Stuart III, DO) Anxiety (Unknown) Asthma Bronchitis Depression Surgical History Surgical History History of thoracic surgery No significant past surgical history Family History Family History Mother Panic attack Anxiety Mitral valve prolapse Social History Social History Smoking packs per day: 1.5 Smoking cigarettes per day: 30.0 Years smoked: 12 Smoking pack-years: 18.00 Smoking status: Current every day smoker Tobacco type: cigarettes Second hand tobacco smoke exposure: Yes Alcohol intake: current Drinks per week: 1 Substance use: current Substance use type: marijuana Last use: 06/02/2019 Gender identity (if verbalized by the patient): Male Spiritual care concerns: No Agree to blood products: Yes Exam Const: General: healthy appearing and no acute distress Nutritional Appearance: well nourished Orientation/consciousness: patient oriented x3 Limitations: no limitations HENMT: Teeth and gingiva: abnormal tooth and associated gingiva (numerous dental caries, tender left bicuspid and 1sr left upper ) Other: molar but no abscess noted Eyes: EOM: EOMs intact bilaterally Neck: Neck: normal visual inspection and no lymphadenopathy Course Vital Signs Vital signs: Vital Signs Temperature 97.4 F L 11/07/23 07:24 Pulse Rate 77 11/07/23 07:24 Respiratory Rate 18 11/07/23 07:24 Blood Pressure 126/73 11/07/23 07:24 Pulse Oximetry 99 11/07/23 07:24 Oxygen Delivery Room Air 11/07/23 07:24 Temperature 97.4 F L 11/07/23 07:24 Pulse Rate 77 11/07/23 07:24 Respiratory Rate 18 11/07/23 07:24 Blood Pressure 126/73 11/07/23 07:24 Pulse Oximetry 99 11/07/23 07:24 Oxygen Delivery Room Air 11/07/23 07:24 MDM - Dental/Oral MDM Narrative Medical decision making narrative: dental carries no abscess. will give pain shot and home on already prescribed meds. Discharge Plan Discharge Clinical Impression: Dental caries Patient Disposition: Home, Self-Care Condition: Improved Instructions: Antibiotic Form, Dental Abscess (ED), Toothache (ED) Prescriptions: New hydrocodone-acetaminophen 5-325 mg tablet 1 tablet PO Q6H PRN (Reason: pain) Qty: 10 0RF No Action penicillin V potassium 500 mg tablet 500 mg PO Q6H 7 Days Qty: 28 0RF hydrocodone-acetaminophen 5-325 mg tablet 1 tablet PO Q8H PRN (Reason: pain) Qty: 7 0RF Follow-up/Referrals: UNKNOWN,DOCTOR [Primary Care Provider] - Stand Alone Forms: Work/School Release IP
[2023-11-07] MEDS: KETOROLAC 30 MG/ML VIAL (*BKC) IM (07:53)
== END 2023-11-07 08:46 | disposition home or self-care (01) ==
LOC: ANHED 07:59
PROVIDERS: Emergency Provider Emergency Medicine
DX: K02.9 Dental caries, unspecified (principal); J45.909 Unspecified asthma, uncomplicated; F17.210 Nicotine dependence, cigarettes, uncomplicated
CPT/HCPCS: 96372; 99283; J1885

== ENCOUNTER 2025-01-15 05:13 | Emergency (ER) | payer OTHER, SELFPAY ==
--- OUTSIDE RECORDS SUMMARY | 2025-01-15 05:15 | XMS_ITS | Clinical Summary ---
Author Organization [facility] Address [address] [place] [id number] Care Team Providers Care Occ Therapist Name Role Phone None, Provider MD Primary Care Provider Unavaila ble Allergies No known active allergies Medications clonazePAM (KLONOPIN) 0.5 MG tablet Take 1 tablet (0.5 mg total) by mouth daily. 10/30/2022 Active mirtazapine (REMERON) 15 MG tablet Take 1 tablet (15 mg total) by mouth nightly as needed. at bedtime. 10/30/2022 Active Social History Tobacco Use Types Packs/Day Years Used Date Smoking Tobacco: Former Smokeless Tobacco: Never Tobacco Cessation:Counseling Given: Not Answered Sex and Gender Information Value Date Recorded Sex Assigned at Not on file Legal Sex Male 8:22 PM CDT Gender Identity Not on file Sexual Orientation Not on file Last Filed Vital Signs Vital Sign Reading Time Taken Comments Blood Pressure 121/81 11/07/2023 6:13 AM CDT Pulse 69 11/07/2023 6:13 AM CDT Temperature 36.6 C (97.9 F) 11/07/2023 6:13 AM CDT Respiratory Rate 19 11/07/2023 6:13 AM CDT Oxygen Saturation 97% 11/07/2023 6:13 AM CDT Inhaled Oxygen Concentration - - Weight 63.5 kg (140 lb) 11/07/2023 6:13 AM CDT Height 182.9 cm (6') 11/07/2023 6:13 AM CDT Body Mass Index 18.99 11/07/2023 6:13 AM CDT Plan of Treatment Health Maintenance Due Date Last Done Comments Annual Physical 1998 Hepatitis C 2013 DTaP, Tdap and Td Vaccines ( 1 - Tdap) 2014 Hepatitis B Vaccines (1 of 3 - 19+ 3-dose series) 2014 HPV Vaccines (1 - 3-dose SCD M series) 2022 COVID-19 Vaccine (1 - 2023-2 5 season) 2024 Meningococcal B Vaccine Aged Out No l onger eligible based on patient's age to complete this topic Meningococcal Vaccine Aged Out No uriel wilmer eligible based on patient's age to complete this topic Pneumococcal Vaccine: Pediat rics (0 to 5 Years) and At-Risk Patients (6 to 49 Years) Aged Out No longer eligible b ased on patient's age to complete this topic RSV Immunizations Under 20 Months Aged Out No longer eligible based on patient's age to complete this topic Insurance MEDICAID Care Teams Occ Therapist Relationship Specialty Start Date End Date None, Provider, PCP - General 11/04/20
--- OUTSIDE RECORDS SUMMARY | 2025-01-15 05:15 | XMS_ITS | Clinical Summary ---
Author Organization [facility] [employer] Address [address] [place] [address] Care Team Providers Care Court Usher Name Role Phone Louie Charles MD Primary Care Provider [phone] Source Comments [facility] [employer],non-owned Affiliates and Associated Physician Practices is amultiple site organization consisting of ambulatory clinics and hospital sitesin [place], [place], [place] and [place]. This disclosure is being madepursuant to the Care Everywhere program and may not contain all information available regarding this patient. Last updated 18.[facility] [employer] Allergies No known active allergies Medications * Be aware that medications may not be up to date on this document. Alwaysverify current medications with the patient. No known medications Active Problems Problem Noted Date Diagnosed Date Chest pain 10/19/2009 Family History Medical History Relation Name Comments Anxiety Disorder Mother Relation Name Status Comments Mother Social History Tobacco Use Types Packs/Day Years Used Date Smoking Tobacco: Every Day Cigarettes 0.5 2 Alcohol Use Standard Drinks/Week Comments Not Asked 0 (1 standard drink = 0.6 oz pur e alcohol) Sex and Gender Information Value Date Recorded Sex Assigned at Not on file Legal Sex Male 8:52 AM [employer] Gender Identity Not on file Sexual Orientation Not on file Last Filed Vital Signs Vital Sign Reading Time Taken Comments Blood Pressure 102/61 10/19/2009 11:18 AM CDT Pulse 84 10/19/2009 11:18 AM CDT Temperature 36.4 C (97.5 F) 10/19/2009 7:42 AM CDT Respiratory Rate 20 10/19/2009 11:18 AM CDT Oxygen Saturation - - Inhaled Oxygen Concentration - - Weight 51.2 kg (112 lb 14 oz) 10/19/2009 7:42 AM CDT Height - - Body Mass Index - - Plan of Treatment Health Maintenance Due Date Last Done Comments HIV SCREENING 2010 HEPATITIS C SCREENING 12/27/2012 DTAP/TDAP/TD VACCINES (1 - Tdap) 2014 HEPATITIS B VACCINE (1 of 3 - 19+ 3-dose series) 2014 HPV VACCINE (1 - 3-dose SCDM series) 2022 COVID-19 VACCINE (1 - 2023-2 5 season) 2024 DEPRESSION SCREENING 06/03/2024 INFLUENZA VACCINE (#1) 2025 ZOSTER VACCINE (1 of 2) 2045 HIB VACCINE Aged Out No longer eligi ble based on patient's age to complete this topic MENINGOCOCCAL (Group B) VACC INE SHARED DECISION-MAKING Aged Out No longer eligibl e based on patient's age to complete this topic MENINGOCOCCAL GROUPS A/C/Y/W VACCINE Aged Out No longer eligible b ased on patient's age to complete this topic PNEUMOCOCCAL VACCINE Aged Out No long er eligible based on patient's age to complete this topic Care Teams Court Usher Relationship Specialty Start Date End Date Louie Charles MD [address] [place] [id number] PCP - General 10/19/09
[2025-01-15 05:16] VITALS: BP 115/75; PULSE 79; RESP 20; TEMP 36.6; O2SAT 99
--- NOTE | 2025-01-15 06:36 | ED.DENTAL ---
HPI - Dental/Oral General Chief complaint: Dental/Oral Stated complaint: jaw pain, dental Time Seen by Provider: 01/15/25 06:33 History of Present Illness HPI Narrative: 30-year-old male with significant antalgia and dental disease presenting to the emergency room with right-sided lower mandibular jaw pain secondary to symptomatic dental caries. Symptoms improved with antibiotics. He has not seen a dentist in many years but has had previous extractions for similar symptoms. Most recently seen here 2 months ago for same complaint on same location. States he did not remember if he feels any of the prescriptions he got last time. Requesting pain control and antibiotics. No systemic symptoms. Otherwise well-appearing and recently in his normal state of health. No traumatic injuries. Related Data Allergies Allergy/AdvReac Type Severity Reaction Status Date / Time No Known Allergies Allergy Verified 01/15/25 06:37 Review of Systems Review of Systems: As reviewed above in HPI [facility] Past Medical History Medical History (Updated 01/15/25 @ 06:39 by Gulshan Martinez MD) Depression Anxiety (Unknown) Bronchitis Asthma Surgical History Surgical History History of thoracic surgery No significant past surgical history Family History Family History Mother Panic attack Anxiety Mitral valve prolapse Social History Social History Smoking packs per day: 1.5 Smoking cigarettes per day: 30.0 Years smoked: 12 Smoking pack-years: 18.00 Smoking status: Current every day smoker Tobacco type: cigarettes Second hand tobacco smoke exposure: Yes Alcohol intake: current Drinks per week: 1 Substance use: current Substance use type: marijuana Last use: 06/02/2019 Gender identity (if verbalized by the patient): Male Spiritual care concerns: No Agree to blood products: Yes Exam Narrative: GENERAL: [Well-appearing, well-nourished, and in no acute distress.] HEAD: [Normocephalic, atraumatic.] EYES: [PERRLA and EOMI.] ENT: Significant dental decay in most areas of his mouth worsening on the right lower jaw consistent with patient's area of pain. No periapical abscess formation or bleeding. No jaw swelling or lymphadenopathy. No asymmetric facial features. NECK: Supple. CHEST: Symmetric chest rise without any respiratory distress ABDOMEN: [Soft, nondistended], [nontender], [No rigidity or guarding] EXTREMITIES: Normal range of motion. [No edema.] SKIN: Warm, dry, no rash. NEURO: [No focal deficits]. Alert and oriented [x3.] PSYCH: [Normal mood and affect.] Course Vital Signs Vital signs: Vital Signs Temperature 36.6 C 01/15/25 05:16 Pulse Rate 79 01/15/25 05:16 Respiratory Rate 20 01/15/25 05:16 Blood Pressure 115/75 01/15/25 05:16 Pulse Oximetry 99 01/15/25 05:16 Oxygen Delivery Room Air 01/15/25 05:16 Temperature 36.6 C 01/15/25 05:16 Pulse Rate 79 01/15/25 05:16 Respiratory Rate 20 01/15/25 05:16 Blood Pressure 115/75 01/15/25 05:16 Pulse Oximetry 99 01/15/25 05:16 Oxygen Delivery Room Air 01/15/25 05:16 MDM - Dental/Oral MDM Narrative Medical decision making narrative: 30-year-old male with significant antalgia and dental disease presenting to the emergency room with right-sided lower mandibular jaw pain secondary to symptomatic dental caries. Symptoms improved with antibiotics. He has not seen a dentist in many years but has had previous extractions for similar symptoms. Most recently seen here 2 months ago for same complaint on same location. States he did not remember if he feels any of the prescriptions he got last time. Requesting pain control and antibiotics. No systemic symptoms. Otherwise well-appearing and recently in his normal state of health. No traumatic injuries. Significant dental decay in most areas of his mouth worsening on the right lower jaw consistent with patient's area of pain. No periapical abscess formation or bleeding. No jaw swelling or lymphadenopathy. No asymmetric facial features. Patient will be treated for symptomatic dental disease with pain control medications and antibiotics. Given intramuscular Dilaudid and p.o. Augmentin. Safe for discharge home at this time. Prescription sent to his preferred pharmacy. He has to follow-up with the dentist and he is aware of this. Medical Records Attestation: I reviewed the patient's medical records. Lab Data Attestation: I reviewed the patient's lab results. Discharge Plan Discharge Clinical Impression: Dentalgia, Dental caries Patient Disposition: Home Condition: Stable Instructions: Antibiotic Form, Toothache (ED) Additional Instructions: Follow-up with a dentist, any these teeth extracted for definitive care. Take the antibiotics and pain control medications. Return with any emergent concerns. Patient Language: Australian Prescriptions: New hydrocodone-acetaminophen 5-325 mg tablet 1 tablet PO Q8H PRN (Reason: pain) Qty: 7 0RF amoxicillin-pot clavulanate 875-125 mg tablet 1 tablet PO Q12H 7 Days Qty: 14 0RF No Action penicillin V potassium 500 mg tablet 500 mg PO Q6H 7 Days Qty: 28 0RF hydrocodone-acetaminophen 5-325 mg tablet 1 tablet PO Q8H PRN (Reason: pain) Qty: 7 0RF hydrocodone-acetaminophen 5-325 mg tablet 1 tablet PO Q6H PRN (Reason: pain) Qty: 10 0RF Follow-up/Referrals: UNKNOWN,DOCTOR [Primary Care Provider] - Time of Disposition: 06:40
--- OUTSIDE RECORDS SUMMARY | 2025-01-15 06:38 | XMS_ITS | Clinical Summary ---
Author Organization [facility] Address [address] [place] [id number] Care Team Providers Care Wind Projects Supervisor Name Role Phone None, Provider MD Primary [...] age to complete this topic Insurance [place] [address] Care Teams Wind Projects Supervisor Relationship Specialty Start Date End Date None, Provider, PCP - General 11/04/20
--- OUTSIDE RECORDS SUMMARY | 2025-01-15 06:38 | XMS_ITS | Clinical Summary ---
Author Organization [facility] [employer] Address [address] [place] [address] Care Team Providers Care Mixer Pigment Name Role Phone Louie Charles MD Primary Care Provider [phone] Source Comments [facility] [employer],non-owned Affiliates and Associated Physician Practices is amultiple site organization consisting of ambulatory clinics and hospital sitesin [place], [place], [place] and [place]. This disclosure is being madepursuant to the Care Everywhere program and may not contain all information available regarding this patient. 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
[2025-01-15] MEDS: HYDROmorphone HCL INJ (*CRX) 1 MG/ML SYR IM (06:42)
[2025-01-15 07:09] VITALS: BP 100/78; PULSE 70; RESP 18; O2SAT 99
== END 2025-01-15 07:10 | disposition home or self-care (01) ==
PROVIDERS: Emergency Provider Student in an Organized Health Care Education/Training Program
DX: K02.9 Dental caries, unspecified (principal); J45.909 Unspecified asthma, uncomplicated; F41.9 Anxiety disorder, unspecified; F32.A Depression, unspecified; F17.210 Nicotine dependence, cigarettes, uncomplicated
CPT/HCPCS: 96372; 99283; A9270; J1171